=== PATIENT | female | born 1940 | race Caucasian/White ===

== ENCOUNTER 2018-02-15 11:53 | Emergency (ER) | payer MEDICARE, OTHER ==
[~2018-02-15] VITALS: Ht 154.9 cm; Wt 85.7 kg
[~2018-02-15 11:53] MED LIST: BAYER CHEWABLE81 MG PO; COZAAR 50 MG TA50 M2 PO; DIFLUCAN150 M1 PO; EFFEXOR XR150 MG PO; KEFLEX500 MG PO; NAMENDA 10 MG T10 MG; NEURONTIN 300300 M1 PO; POTASSIUM20; SEROQUEL 25 MG25 M1 PO; SYNTHROID112 MCG PO
[2018-02-15] MEDS ORDERED: OMEGA-31000 M1 (12:22)
[2018-02-15] MEDS ORDERED: CLOTRIMAZOLE10 MG DISSOLVE (12:23)
[2018-02-15] MEDS ORDERED: TRIAMCINOLONE A80 G2 TOP (12:23)
[2018-02-15 12:25] LABS: URINE BILIRUBIN NEGATIVE (Negative); URINE BLOOD NEGATIVE (Negative); URINE CLARITY CLEAR; URINE COLOR YELLOW; URINE GLUCOSE-RANDOM NEGATIVE (Negative); URINE KETONES NEGATIVE (Negative); URINE LEUKOCYTES-REFLEX 2+ (Negative); URINE NITRITE-REFLEX POSITIVE (Negative); URINE PROTEIN NEGATIVE (Negative); URINE UROBILINOGEN 0.2 E.U./dl (0.2-1.0)
[2018-02-15 12:30] LABS: CASTS None Seen /LPF (None Seen); CRYSTALS None Seen /LPF (None Seen); MUCUS None Seen strn/LPF (None Seen); SQUAMOUS 0-3 Few /LPF (0-3); URINE RBC 3-10 Few /HPF (0-2); URINE WBC-REFLEX 6-15 Few /HPF (0-5)
[2018-02-15] MEDS ORDERED: CIPRO500 MG PO (12:34)
[2018-02-15 12:49] VITALS: BP 145/85
== END 2018-02-15 12:49 | disposition home or self-care (01) ==
LOC: M.ERS 11:53
PROVIDERS: Physician Assistant
DX: N39.0 Urinary tract infection, site not specified (principal); M79.7 Fibromyalgia; E03.9 Hypothyroidism, unspecified; I10 Essential (primary) hypertension; G47.30 Sleep apnea, unspecified; K21.9 Gastro-esophageal reflux disease without esophagitis; Z91.041 Radiographic dye allergy status; Z88.1 Allergy status to other antibiotic agents; Z88.2 Allergy status to sulfonamides; Z88.8 Allergy status to other drugs, medicaments and biological substances; Z90.49 Acquired absence of other specified parts of digestive tract; Z90.710 Acquired absence of both cervix and uterus; Z87.01 Personal history of pneumonia (recurrent)

== ENCOUNTER 2018-08-21 09:48 | Observation (INO) | payer MEDICARE, OTHER ==
[~2018-08-21] VITALS: Ht 162.6 cm; Wt 80.3 kg
[~2018-08-21 09:48] MED LIST changes: +CIPRO500 MG PO; +CLOTRIMAZOLE10 MG DISSOLVE; -NAMENDA 10 MG T10 MG; +NAMENDA 10 MG T10 MG PO; +OMEGA-31000 M1 PO; -POTASSIUM20; +POTASSIUM20 PO; -SYNTHROID112 MCG PO; +SYNTHROID88 MCG PO; +TRIAMCINOLONE A80 G2 TOP
[2018-08-21 09:49] VITALS: BP 117/47
[2018-08-21] MEDS ORDERED: DIFLUCAN200 MG PO (09:56)
[2018-08-21] MEDS ORDERED: CLONAZEPAM 1 MG1 M1 PO (09:56)
[2018-08-21] MEDS ORDERED: LASIX 20 MG TAB20 MG PO (09:58)
[2018-08-21] MEDS ORDERED: FLONASE 0.05%50 MCG NASAL (09:58)
[2018-08-21] MEDS ORDERED: GLIMEPIRIDE1 MG PO (09:59)
[2018-08-21] MEDS ORDERED: GABAPENTIN800 M1 PO (10:00)
[2018-08-21] MEDS ORDERED: HYOSCYAMINE0.125 M2 PO (10:02)
[2018-08-21] MEDS ORDERED: IBUPROFEN 200200 M1 PO (10:03)
[2018-08-21] MEDS ORDERED: IPRATROPIUM BRO30 ML NASAL (10:04)
[2018-08-21] MEDS ORDERED: LISINOPRIL5 MG PO (10:06)
[2018-08-21] MEDS ORDERED: GLUCOPHAGE XR750 MG PO (10:07)
[2018-08-21] MEDS ORDERED: TYLENOL325 MG PO (10:08)
[2018-08-21] MEDS ORDERED: LOPRESSOR50 PO (10:09)
[2018-08-21] MEDS ORDERED: NYAMYC15 GM TOP (10:10)
[2018-08-21] MEDS ORDERED: PROTONIX40 M1 PO (10:10)
[2018-08-21] MEDS ORDERED: PRAVACHOL40 MG PO (10:11)
[2018-08-21] MEDS ORDERED: BRILINTA90 MG PO (10:13)
[2018-08-21] MEDS ORDERED: QUETIAPINE FUMA25 MG PO (10:13)
[2018-08-21 10:26] LABS: ABSOLUTE BASOPHILS 0.1 thou/uL (0.0-0.2); ABSOLUTE EOSINOPHILS 0.1 thou/uL (0.0-0.7); ABSOLUTE LYMPHOCYTES 1.9 thou/uL (0.8-5.3); ABSOLUTE MONOCYTES 0.7 thou/uL (0.0-1.2); BASOPHILS 0.7 %; BE -3.7 mmol/L (-2 to +3); HEMOGLOBIN 11.4 gm/dL (12.0-15.0); LYMPHOCYTES 22.1 %; MCH 31.2 pg (26.0-34.0); MCHC 33.6 g/dL (28.0-37.0); MONOCYTES 7.8 %; MPV 7.4 fl. (7.2-11.1); NUCLEATED RBCS 0 /100WBC; PCO2 35.6 mmHg (35.0-45.0); PLATELET COUNT* 224 thou/uL (150-400); PO2 72.7 mmHg (75.0-100.0); POLYS 68.4 %; RBC 3.66 mil/uL (4.20-5.00); RDW-CV 14.2 % (10.5-14.5); WBC 8.8 thou/uL (4.0-11.0); pH 7.383 (7.340-7.450)
[2018-08-21 10:39] LABS: PROTIME 10.7 Seconds (9.20-11.50)
[2018-08-21 10:46] LABS: SALICYLATE < 2.8 mg/dL (2.8-20.0)
[2018-08-21 10:47] LABS: ACETAMINOPHEN < 2 ug/mL (10-30)
[2018-08-21 10:49] LABS: ANION GAP 11 mmol/L (7-16); BUN 52 mg/dL (7-18); CALCIUM 10.3 mg/dL (8.5-10.1); CHLORIDE 90 mmol/L (98-107); CO2 26 mmol/L (21-32); CREATININE 1.8 mg/dL (0.6-1.3); GLUCOSE 131 mg/dL (70-99); POTASSIUM 5.8 mmol/L (3.5-5.1); SODIUM 127 mmol/L (136-145)
[2018-08-21 11:03] LABS: ALKALINE PHOSPHATASE 66 U/L (46-116); LIPASE 233 U/L (73-393); NT-PRO BRAIN NAT PEPTIDE 217 pg/mL (<300); SGOT 29 U/L (15-37); SGPT 42 U/L (30-65); TOTAL BILIRUBIN 0.3 mg/dL (<0.1-1.0); TOTAL PROTEIN 8.4 g/dL (6.4-8.2); TROPONIN-I LEVEL <0.06 ng/mL (<0.06)
[2018-08-21 12:35] LABS: URINE BILIRUBIN NEGATIVE (Negative); URINE BLOOD TRACE (Negative); URINE CLARITY CLEAR; URINE COLOR YELLOW; URINE GLUCOSE-RANDOM NEGATIVE (Negative); URINE KETONES NEGATIVE (Negative); URINE LEUKOCYTES-REFLEX TRACE (Negative); URINE NITRITE-REFLEX NEGATIVE (Negative); URINE PROTEIN NEGATIVE (Negative); URINE SPECIFIC GRAVITY <= 1.005 (1.005-1.030); URINE UROBILINOGEN 0.2 E.U./dl (0.2-1.0)
[2018-08-21 12:46] LABS: BACTERIA-REFLEX 1-9 Few /HPF (None Seen); CASTS None Seen /LPF (None Seen); CRYSTALS None Seen /LPF (None Seen); MUCUS None Seen strn/LPF (None Seen); SQUAMOUS 0-3 Few /LPF (0-3); URINE RBC 0-2 Rare /HPF (0-2); URINE WBC-REFLEX 0-5 Rare /HPF (0-5)
[2018-08-21 12:50] LABS: AMP/METHAMP Negative (Negative); BARBITURATES Negative (Negative); BENZODIAZEPINES Negative (Negative); COCAINE Negative (Negative); METHADONE Negative (Negative); OPIATES Negative (Negative); PCP Negative (Negative); THC Negative (Negative)
[2018-08-21 13:29] VITALS: BP 140/59
[2018-08-21 13:40] VITALS: BP 134/58
--- NOTE | 2018-08-21 14:54 | EKG ---
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: : 1940 Requested By: Dre Lancaster Order Number: [id number] MD: Elvis Snell Measurements Intervals [place] Rate: 67 P: 49 MI: 194 QRS: -51 QRSD: 124 T: -72 QT: 414 QTc: 437 Interpretive Statements Sinus rhythm Left bundle branch block Compared to ECG 06/15/2013 11:47:49 Left bundle-branch block now present Electronically Signed On 08-21-2018 14:54:03 CDT by Elvis Snell [email or web address] <ELECTRONICALLY SIGNED> By: Elvis Snell MD, [facility] 08/21/18 [id number] [id number] Elvis Snell MD, [facility] /EPI
[2018-08-21 17:17] LABS: CALCIUM 9.4 mg/dL (8.5-10.1); CREATININE 1.2 mg/dL (0.6-1.3); POTASSIUM 4.5 mmol/L (3.5-5.1)
[2018-08-21 22:38] VITALS: BP 108/50
[2018-08-22 04:00] LABS: ABSOLUTE BASOPHILS 0.1 thou/uL (0.0-0.2); ABSOLUTE EOSINOPHILS 0.1 thou/uL (0.0-0.7); ABSOLUTE LYMPHOCYTES 2.2 thou/uL (0.8-5.3); ABSOLUTE MONOCYTES 0.6 thou/uL (0.0-1.2); ABSOLUTE NEUTROPHILS 3.5 thou/uL (1.6-8.1); BASOPHILS 0.9 %; EOSINOPHILS 1.8 %; HEMATOCRIT 30.5 % (37.0-47.0); HEMOGLOBIN 10.4 gm/dL (12.0-15.0); LYMPHOCYTES 34.4 %; MCH 31.3 pg (26.0-34.0); MCV 92.2 fL (80.0-100.0); MONOCYTES 8.6 %; MPV 7.1 fl. (7.2-11.1); NUCLEATED RBCS 0 /100WBC; PLATELET COUNT* 213 thou/uL (150-400); POLYS 54.3 %; RDW-CV 14.2 % (10.5-14.5); WBC 6.4 thou/uL (4.0-11.0)
[2018-08-22 04:19] LABS: CALCIUM 9.1 mg/dL (8.5-10.1); CREATININE 0.9 mg/dL (0.6-1.3); MAGNESIUM 1.8 mg/dL (1.8-2.4); POTASSIUM 4.4 mmol/L (3.5-5.1)
[2018-08-22 08:05] VITALS: BP 139/79
[2018-08-22] MEDS ORDERED: LASIX 40 MG TAB40 M2 PO ×2 (11:20→11:25)
[2018-08-22 12:17] VITALS: BP 139/79
[2018-08-22 15:25] VITALS: BP 139/79
== END 2018-08-22 15:25 | disposition home or self-care (01) ==
LOC: M.ERS 09:48 → M.ORTHSURG 11:17 → M.TBA-ER 11:17 → M.ORTHSURG 11:17
PROVIDERS: Emergency Medicine; ADMIT Family Medicine
DX: I13.0 Hypertensive heart and chronic kidney disease with heart failure and stage 1 through stage 4 chronic kidney disease, or unspecified chronic kidney disease (principal); E11.22 Type 2 diabetes mellitus with diabetic chronic kidney disease; N18.3 Chronic kidney disease, stage 3 (moderate); I50.9 Heart failure, unspecified; N17.9 Acute kidney failure, unspecified; G47.33 Obstructive sleep apnea (adult) (pediatric); E03.9 Hypothyroidism, unspecified; I25.10 Atherosclerotic heart disease of native coronary artery without angina pectoris; R42 Dizziness and giddiness; Z79.899 Other long term (current) drug therapy; Z90.710 Acquired absence of both cervix and uterus; Z90.89 Acquired absence of other organs; Z98.890 Other specified postprocedural states